=== PATIENT | male | born 1950 | race Caucasian/White ===

== ENCOUNTER 2022-04-05 09:51 | Emergency (ER) | payer MEDICARE ==
[2022-04-05 10:06] VITALS: BP 155/78
[2022-04-05 10:16] VITALS: BP 169/79
[2022-04-05 10:25] LABS: GFR FOR AFR.AMER. > 60 ML/MIN (>=60 (CALC)); GFR OTHER RACES > 60 ML/MIN (>=60 (CALC)); HEMOGLOBIN 16.3 g/dl (14.0-18.0); IMMATURE GRANULOCYTES 0.2 % (0.0-5.0); MEAN CELL VOLUME 89.6 fL CALC (80.0-100.0); MEAN CORPUSCULAR HGB 32.5 pG CALC (26.0-32.0); MEAN CORPUSCULAR HGB CONC 36.2 g/dL CAL (32.0-36.0); NEUT# 7.74 thou/uL (1.82-7.42); RED BLOOD COUNT 5.02 mill/uL (4.70-6.10); RED CELL DISTRI WIDTH 12.1 % (11.5-15.5)
[2022-04-05 10:31] VITALS: BP 169/125
[2022-04-05 10:34] LABS: ALBUMIN 4.5 g/dL (3.2-5.0); ALKALINE PHOSPHATASE 87 u/l (38-126); ANION GAP 15 (6-22 (CALC)); BILIRUBIN, TOTAL 2.3 mg/dL (0.0-1.4); BUN 10 mg/dL (8-23); BUN/CREATININE RATIO 13 (12-20 (CALC)); CARBON DIOXIDE 27 mmol/l (22-30); CHLORIDE 98 mmol/l (95-108); CREATININE 0.8 mg/dL (0.7-1.3); GFR FOR AFR.AMER. > 60 ML/MIN (>=60 (CALC)); GFR OTHER RACES > 60 ML/MIN (>=60 (CALC)); LIPASE 89 u/l (23-300); POTASSIUM 4.1 mmol/l (3.5-5.1); SGOT/AST 49 u/l (19-48); SODIUM 136 mmol/l (137-146); TOTAL PROTEIN 7.4 g/dL (6.3-8.2)
[2022-04-05] MEDS ORDERED: ASPIRIN81 MG PO (10:57)
[2022-04-05 11:01] VITALS: BP 181/142
[2022-04-05 11:17] VITALS: BP 150/75
[2022-04-05 12:49] LABS: URINE BILIRUBIN - DIPSTICK NEGATIVE (NEGATIVE); URINE BLOOD DIPSTICK NEGATIVE (NEGATIVE); URINE COLOR YELLOW; URINE GLUCOSE - DIPSTICK 100 mg/dL (NEGATIVE); URINE KETONE NEGATIVE (NEGATIVE); URINE LEUK ESTERASE NEGATIVE (NEGATIVE); URINE PROTEIN - DIPSTICK NEGATIVE (NEG-TRACE); URINE SPECIFIC GRAVITY 1.015; URINE UROBILINOGEN - DIPSTICK 0.2 E.U./dL (0.2)
[2022-04-05 12:51] LABS: URINE NITRITE - DIPSTICK NEGATIVE (Negative)
[2022-04-05 15:02] VITALS: BP 150/75
== END 2022-04-05 15:18 | disposition left against medical advice (07) ==
LOC: ED 09:51
PROVIDERS: Family Medicine
DX: K81.0 Acute cholecystitis (principal); I10 Essential (primary) hypertension; Z53.29 Procedure and treatment not carried out because of patient's decision for other reasons
CPT/HCPCS: Q9967

== ENCOUNTER 2022-04-08 16:31 | Inpatient (IN) | payer MEDICARE ==
[~2022-04-08] VITALS: Ht 177.8 cm; Wt 105.0 kg
[2022-04-08] VITALS (13 sets, daily range): BP systolic 107–142; BP diastolic 59–83
[~2022-04-08 16:31] MED LIST: ASPIRIN81 MG PO
[2022-04-08 17:33] LABS: HEMATOCRIT 43.6 % (39.0-50.0); HEMOGLOBIN 15.6 g/dl (14.0-18.0); IMMATURE GRANULOCYTES 0.2 % (0.0-5.0); MEAN CELL VOLUME 90.5 fL CALC (80.0-100.0); MEAN CORPUSCULAR HGB 32.4 pG CALC (26.0-32.0); MEAN CORPUSCULAR HGB CONC 35.8 g/dL CAL (32.0-36.0); NEUT# 10.8 thou/uL (1.82-7.42); RED BLOOD COUNT 4.82 mill/uL (4.70-6.10); RED CELL DISTRI WIDTH 12.5 % (11.5-15.5)
[2022-04-08 18:02] LABS: ALBUMIN 3.7 g/dL (3.2-5.0); ALKALINE PHOSPHATASE 107 u/l (38-126); ANION GAP 19 (6-22 (CALC)); BILIRUBIN, TOTAL 2.5 mg/dL (0.0-1.4); BUN 24 mg/dL (8-23); BUN/CREATININE RATIO 24 (12-20 (CALC)); CARBON DIOXIDE 22 mmol/l (22-30); CHLORIDE 99 mmol/l (95-108); GFR FOR AFR.AMER. > 60 ML/MIN (>=60 (CALC)); GFR OTHER RACES > 60 ML/MIN (>=60 (CALC)); LIPASE 361 u/l (23-300); POTASSIUM 3.8 mmol/l (3.5-5.1); SGOT/AST 37 u/l (19-48); SODIUM 136 mmol/l (137-146); TOTAL PROTEIN 6.4 g/dL (6.3-8.2)
[2022-04-08 23:29] LABS: URINE BILIRUBIN - DIPSTICK NEGATIVE (NEGATIVE); URINE BLOOD DIPSTICK NEGATIVE (NEGATIVE); URINE COLOR YELLOW; URINE GLUCOSE - DIPSTICK NEGATIVE (NEGATIVE); URINE KETONE 15 mg/dL (NEGATIVE); URINE LEUK ESTERASE NEGATIVE (NEGATIVE); URINE PH 6.5 (4.5-8.0); URINE PROTEIN - DIPSTICK NEGATIVE (NEG-TRACE)
[2022-04-08 23:31] LABS: URINE NITRITE - DIPSTICK POSITIVE (Negative)
[2022-04-08 23:43] LABS: URINE BACTERIA FEW hpf; URINE SQUAMOUS EPITHELIAL CELL FEW EPI/hpf (0-FEW)
[2022-04-09] VITALS (8 sets, daily range): BP systolic 91–143; BP diastolic 47–70
[2022-04-09 05:20] LABS: HEMATOCRIT 39.4 % (39.0-50.0); HEMOGLOBIN 13.9 g/dl (14.0-18.0); IMMATURE GRANULOCYTES 0.3 % (0.0-5.0); MEAN CELL VOLUME 91.8 fL CALC (80.0-100.0); MEAN CORPUSCULAR HGB 32.4 pG CALC (26.0-32.0); MEAN CORPUSCULAR HGB CONC 35.3 g/dL CAL (32.0-36.0); NEUT# 8.95 thou/uL (1.82-7.42); RED BLOOD COUNT 4.29 mill/uL (4.70-6.10); RED CELL DISTRI WIDTH 12.5 % (11.5-15.5)
[2022-04-09 05:36] LABS: ALKALINE PHOSPHATASE 84 u/l (38-126); AMYLASE 43 u/l (30-110); BUN 16 mg/dL (8-23); BUN/CREATININE RATIO 17 (12-20 (CALC)); CARBON DIOXIDE 25 mmol/l (22-30); CHLORIDE 104 mmol/l (95-108); GFR FOR AFR.AMER. > 60 ML/MIN (>=60 (CALC)); GFR OTHER RACES > 60 ML/MIN (>=60 (CALC)); LIPASE 41 u/l (23-300); SGOT/AST 34 u/l (19-48); SODIUM 134 mmol/l (137-146); TOTAL PROTEIN 6.2 g/dL (6.3-8.2)
[2022-04-09 05:38] LABS: ANION GAP 9 (6-22 (CALC)); POTASSIUM 3.7 mmol/l (3.5-5.1)
[2022-04-10 04:15] VITALS: BP 135/82
[2022-04-10 05:39] LABS: HEMATOCRIT 36.7 % (39.0-50.0); HEMOGLOBIN 12.7 g/dl (14.0-18.0); IMMATURE GRANULOCYTES 0.7 % (0.0-5.0); MEAN CELL VOLUME 94.1 fL CALC (80.0-100.0); MEAN CORPUSCULAR HGB 32.6 pG CALC (26.0-32.0); MEAN CORPUSCULAR HGB CONC 34.6 g/dL CAL (32.0-36.0); NEUT# 7.19 thou/uL (1.82-7.42); RED BLOOD COUNT 3.9 mill/uL (4.70-6.10); RED CELL DISTRI WIDTH 12.7 % (11.5-15.5)
[2022-04-10 06:05] LABS: ALBUMIN 2.5 g/dL (3.2-5.0); ALKALINE PHOSPHATASE 72 u/l (38-126); ANION GAP 14 (6-22 (CALC)); BILIRUBIN, TOTAL 1.5 mg/dL (0.0-1.4); BUN 13 mg/dL (8-23); BUN/CREATININE RATIO 14 (12-20 (CALC)); CARBON DIOXIDE 22 mmol/l (22-30); CHLORIDE 106 mmol/l (95-108); GFR FOR AFR.AMER. > 60 ML/MIN (>=60 (CALC)); GFR OTHER RACES > 60 ML/MIN (>=60 (CALC)); POTASSIUM 3.9 mmol/l (3.5-5.1); SODIUM 138 mmol/l (137-146)
[2022-04-10 06:14] LABS: SGOT/AST 101 u/l (19-48); TOTAL PROTEIN 4.7 g/dL (6.3-8.2)
[2022-04-10 07:01] VITALS: BP 122/73
[2022-04-10 07:02] VITALS: BP 122/73
[2022-04-10 15:40] VITALS: BP 112/63
[2022-04-10 19:00] VITALS: BP 129/61
[2022-04-10 19:02] VITALS: BP 129/61
[2022-04-11] VITALS: BP 137/76
[2022-04-11 00:33] VITALS: BP 137/76
[2022-04-11 03:55] VITALS: BP 145/77
[2022-04-11 05:03] LABS: HEMATOCRIT 35.1 % (39.0-50.0); HEMOGLOBIN 12.2 g/dl (14.0-18.0); MEAN CELL VOLUME 93.4 fL CALC (80.0-100.0); MEAN CORPUSCULAR HGB 32.4 pG CALC (26.0-32.0); MEAN CORPUSCULAR HGB CONC 34.8 g/dL CAL (32.0-36.0); RED BLOOD COUNT 3.76 mill/uL (4.70-6.10)
[2022-04-11 05:28] LABS: ALBUMIN 2.5 g/dL (3.2-5.0); ALKALINE PHOSPHATASE 79 u/l (38-126); BILIRUBIN, TOTAL 0.9 mg/dL (0.0-1.4); BUN 10 mg/dL (8-23); BUN/CREATININE RATIO 11 (12-20 (CALC)); CHLORIDE 107 mmol/l (95-108); CREATININE 0.9 mg/dL (0.7-1.3); GFR FOR AFR.AMER. > 60 ML/MIN (>=60 (CALC)); GFR OTHER RACES > 60 ML/MIN (>=60 (CALC)); POTASSIUM 4.4 mmol/l (3.5-5.1); SGOT/AST 64 u/l (19-48); SODIUM 138 mmol/l (137-146); TOTAL PROTEIN 4.8 g/dL (6.3-8.2)
[2022-04-11 05:42] LABS: ANION GAP 8 (6-22 (CALC)); CARBON DIOXIDE 27 mmol/l (22-30)
[2022-04-11 06:53] VITALS: BP 132/73
[2022-04-11 15:40] VITALS: BP 122/64
[2022-04-11 19:02] VITALS: BP 115/58
[2022-04-12 03:52] VITALS: BP 150/74
[2022-04-12 07:13] LABS: ALBUMIN 2.6 g/dL (3.2-5.0); ALKALINE PHOSPHATASE 95 u/l (38-126); ANION GAP 6 (6-22 (CALC)); BILIRUBIN, TOTAL 0.6 mg/dL (0.0-1.4); BUN 10 mg/dL (8-23); BUN/CREATININE RATIO 12 (12-20 (CALC)); CARBON DIOXIDE 32 mmol/l (22-30); CHLORIDE 106 mmol/l (95-108); CREATININE 0.8 mg/dL (0.7-1.3); GFR FOR AFR.AMER. > 60 ML/MIN (>=60 (CALC)); GFR OTHER RACES > 60 ML/MIN (>=60 (CALC)); POTASSIUM 3.6 mmol/l (3.5-5.1); SGOT/AST 52 u/l (19-48); SODIUM 140 mmol/l (137-146); TOTAL PROTEIN 4.9 g/dL (6.3-8.2)
[2022-04-12 07:28] VITALS: BP 150/75
[2022-04-12 07:29] VITALS: BP 150/75
[2022-04-12] MEDS ORDERED: TRAMADOL HCL50 MG PO (11:58)
[2022-04-12] MEDS ORDERED: AMOX/K CLAV875 M1 PO (11:59)
== END 2022-04-12 13:45 | disposition home or self-care (01) | DRG 415 ==
LOC: ED 16:31 → MS2 19:40
PROVIDERS: Family Medicine; Internal Medicine; ADMIT Internal Medicine; ATTEND Surgery
PROC: 0FT40ZZ Resection of Gallbladder, Open Approach (ICD-10-PCS; principal; 2022-04-09)
PROC: 0FJ44ZZ Inspection of Gallbladder, Percutaneous Endoscopic Approach (ICD-10-PCS; 2022-04-09)
PROC: BF00YZZ Plain Radiography of Bile Ducts using Other Contrast (ICD-10-PCS; 2022-04-09)
DX: K80.00 Calculus of gallbladder with acute cholecystitis without obstruction (principal); K91.89 Other postprocedural complications and disorders of digestive system; K82.A1 Gangrene of gallbladder in cholecystitis; K82.8 Other specified diseases of gallbladder; I10 Essential (primary) hypertension; B96.20 Unspecified Escherichia coli [E. coli] as the cause of diseases classified elsewhere; Y83.6 Removal of other organ (partial) (total) as the cause of abnormal reaction of the patient, or of later complication, without mention of misadventure at the time of the procedure; Z20.822 Contact with and (suspected) exposure to COVID-19
CPT/HCPCS: J0131; J1610; Q9967; S0164